=== PATIENT | female | born 1970 | race African-American/Black ===

== ENCOUNTER 2017-04-05 05:25 | Day surgery (SDC) | payer BC ==
[2017-04-03 12:16] LABS: HEMATOCRIT 35.5 % (36.0-47.0); HEMOGLOBIN 11.4 g/dL (12.0-15.5); HGB HCT DIFFERENCE -1.3; MEAN CORPUSCULAR HEMOGLOBIN 23.1 pg (27.0-33.4); MEAN CORPUSCULAR HGB CONC 32.1 g/dL (32.0-36.0); MEAN CORPUSCULAR VOLUME 72 fl (80-97); RED BLOOD COUNT 4.95 10^6/uL (3.72-5.28); RED CELL DISTRIBUTION WIDTH 15.6 % (11.5-14.0); WHITE BLOOD COUNT 7.2 10^3/uL (4.0-10.5)
[2017-04-03 12:22] LABS: APPEARANCE,URINE CLEAR; BILIRUBIN,URINE NEGATIVE (NEGATIVE); GLUCOSE, URINE NEGATIVE (NEGATIVE); KETONES,URINE NEGATIVE (NEGATIVE); LEUKOCYTE ESTERASE,URINE NEGATIVE (NEGATIVE); NITRITE,URINE NEGATIVE (NEGATIVE); PROTEIN,URINE NEGATIVE (NEGATIVE); URINE SPECIFIC GRAVITY 1.019; UROBILINOGEN,URINE NEGATIVE mg/dL (<2.0)
[2017-04-03 12:58] LABS: ANION GAP 11 (5-19); BLOOD UREA NITROGEN 13 mg/dL (7-20); CARBON DIOXIDE 22 mmol/L (22-30); CHLORIDE 108 mmol/L (98-107); CREATININE RESULT 0.58 mg/dL (0.52-1.25); GLUCOSE 99 mg/dL (75-110); POTASSIUM 4.6 mmol/L (3.6-5.0); SODIUM 141.4 mmol/L (137-145)
[~2017-04-05 05:25] MED LIST: LACTATED RINGERS 1000 ML IV PRN; LIDOCAINE 0.5% INJ-PF (5 MG/ML) 50 ML SDV SUBCUT PRN
[2017-04-05] MEDS ORDERED: MIDAZOLAM 2 MG/2 ML INJ ONE (07:08)
[2017-04-05] MEDS ORDERED: PROPOFOL INJ 200 MG/20 ML VIAL IV ONE (07:08)
[2017-04-05] MEDS ORDERED: DEXAMETHASONE SOD PHOSPHATE INJ 4 MG/1 ML VIAL ONE (07:08)
[2017-04-05] MEDS ORDERED: ONDANSETRON HCL INJ/PF 4 MG/2 ML SDV ONE (07:08)
[2017-04-05] MEDS ORDERED: HYDROMORPHONE HCL INJ/PF 2 MG/ML AMPULE ONE (07:09)
[2017-04-05] MEDS ORDERED: FENTANYL CITRATE INJ/PF 100 MCG/2 ML AMPUL IV PRN ×3 (07:39)
[2017-04-05] MEDS ORDERED: ONDANSETRON HCL INJ/PF 4 MG/2 ML SDV IV PRN (07:39)
[2017-04-05] MEDS ORDERED: DIPHENHYDRAMINE HCL 50 MG/ML VIAL IV PRN (07:39)
[2017-04-05] MEDS ORDERED: MEPERIDINE HCL/PF INJ 25 MG/1 ML DISP.SYRIN IV PRN (07:39)
[2017-04-05] MEDS ORDERED: OXYCODONE-ACETAMINOPHEN 5-325 MG TABLET PO PRN (08:19)
[2017-04-05] MEDS ORDERED: RINGERS SOLUTION,LACTATED 1,000 ML IV PRN (08:20)
[2017-04-05] MEDS ORDERED: PROMETHAZINE HCL INJ 25 MG/1 ML VIAL IM PRN (08:20)
[2017-04-05] MEDS ORDERED: ACETAMINOPHEN PO PRN (08:32)
--- NOTE | 2017-04-05 09:51 | OPERATIVE REPORT E ---
Operative Report NAME: GIULIANA ZEPEDA : 1970 AGE: 47Y DATE OF SURGERY: 04/05/2017 ROOM: PREOPERATIVE DIAGNOSIS: Menorrhagia. POSTOPERATIVE DIAGNOSES: 1. Menorrhagia. 2. Submucous leiomyoma. PROCEDURES: 1. Hysteroscopic myomectomy 2. Mirena placement. The fibroid was approximately 1 cm in diameter. SURGEON: LAURENCE ROGERS M.D. INDICATION FOR PROCEDURE: The patient had profuse profound periods with normal Pap smear and normal endometrial biopsy as outpatient at Dr. Johns's office. The options including Novasure and hysterectomy were discussed with the patient and she opted for a hysteroscopy and IUD placement. The usual risks of bleeding, infection, anesthesia, and damage to organs and tissues have been discussed and the patient understood. DESCRIPTION OF PROCEDURE: The patient was taken tot he operating room and placed in the modified lithotomy position. Adequate anesthesia was ascertained. Prepped and draped in the usual manner for a hysteroscopy. Bladder was left undrained. UA performed. Surgical timeout was performed. Cervix readily admitted operative hysteroscope. Upon entry a fibroid was encountered. MyoSure device was deployed. The fibroid was removed in toto, a fairly narrow stalk. IUD placement was performed in the usual fashion. Uterus sounded to approximately 7 cm. String was left approximately 1.5 cm from the cervical os. Bleeding was nil at the completion of procedure. All sponge and needle counts were correct. The patient was taken to the recovery room in stable condition. DICTATING PHYSICIAN: LAURENCE ROGERS M.D. [id number] PHY#: [id number] ID: [id number] JOB#: [id number] ACCT: [id number] cc:LAURENCE ROGERS M.D. >
[2017-04-05 10:15] VITALS: BP 132/75
[2017-04-05] MEDS ORDERED: IBUPROFEN 800 MG TABLET PO SCH (14:00)
== END 2017-04-05 10:00 | disposition home or self-care (01) ==
LOC: OROUT 05:25
PROVIDERS: ATTEND Specialist
PROC: 0UB98ZZ Excision of Uterus, Via Natural or Artificial Opening Endoscopic (ICD-10-PCS; principal; 2017-04-05 07:15)
PROC: 0UH97HZ Insertion of Contraceptive Device into Uterus, Via Natural or Artificial Opening (ICD-10-PCS; 2017-04-05 07:15)
DX: D25.9 Leiomyoma of uterus, unspecified (principal); N92.0 Excessive and frequent menstruation with regular cycle
CPT/HCPCS: 86900; 86901; 36415; 86850; 85027; 81025; 80048; 81001; 88305 ×2; 58561; 58300; J2250; J1100; J1170; J2405; J2704; 952